=== PATIENT | male | born 1940 | race Caucasian/White ===

== ENCOUNTER 2017-02-21 09:24 | Emergency (ER) | payer OTHER ==
--- NOTE | 2017-02-21 11:20 | DIAGNOSTIC IMAGING REPORT ---
PROCEDURE: CT HEAD WITHOUT CONTRAST INDICATION: TRAUMA/INJURY TECHNIQUE: Axial CT images were acquired through the head. Coronal and sagittal reformations were created. COMPARISON: None. FINDINGS: Mild atrophy and white matter chronic ischemic changes. No intracranial hemorrhage or extraaxial fluid collections. Ventricles are normal in size, shape and position. There is no mass, mass effect or midline shift. The calvarium is intact. The paranasal sinuses and mastoid air cells are normally aerated. The extracranial soft tissues and orbits are normal. IMPRESSION: 1. No CT evidence of acute intracranial process. 2. Age related involutional and white matter changes. 3. Findings discussed with Vernon at 11:[address] scans at this facility use dose modulation, iterative reconstruction, and/or weight-based dosing when appropriate to reduce radiation dose to as low as reasonably achievable.
--- NOTE | 2017-02-21 11:21 | ED ORDER SUMMARY ---
..... Patient: ELIO PATTERSON OrderSheet [facility] VisitID: [id number] [address] [place] [address] 76y, M Registration Date/Time: 02/21/2017 ORDER SHEET Weight: 108.8 kg (stated) Allergies: No Known Drug Allergy GENERAL ORDERS: CT Head wo Cont Urgent (09:43 02/21/2017 Joseph PARADA) (Ack 9:46 LNations ER Tech1) (11:07 LWmarino R.N.) MEDICATION ORDERS: Tdap IM 0.5 mL (NOW, per protocol) (10:26 02/21/2017 Joseph PARADA) (11:07 Moses Santos.N.) IV FLUIDS: ORDER SHEET NOTES: [Electronically signed by Taylor De La Fuente R.N. (13:04 02/21/2017)] [Electronically signed by Alfredo Junior DO (23:02 02/21/2017)] [Electronically locked/signed by Taylor De La Fuente R.N. (13:04 02/21/2017)]
--- NOTE | 2017-02-21 11:21 | ED CLINICAL REPORT ---
Clinical Report - Physicians/Mid Levels [facility] [address] [place] [address] 02/21/2017 9:27 Patient: ELIO PATTERSON Time Seen: 09:36. Arrived- By private vehicle. Historian- patient and spouse. HISTORY OF PRESENT ILLNESS Chief Complaint: INJURY TO HEAD. Location of injuries- face. The injury occurred about 1 hour ago. Fell; tripped (was carrying a heavy bag, tripped on a bunched up rug). Occurred at work. The patient complains of mild pain. The patient sustained a blow to the head. No neck pain, loss of consciousness or seizure. REVIEW OF SYSTEMS No numbness, hearing loss, nausea, chest pain or depression. No weakness, loss of vision, vomiting, difficulty breathing or fever. He has had bladder dysfunction (prior bladder cancer). He sustained skin laceration to the face. Has not recently been ill. All systems otherwise negative, except as recorded above. PAST HISTORY PCP: Dr Byrnes Benign prostatitic hypertrophy. Hypertension. Bladder Cancer. Large right lower abdominal hernia. SURGERY HX: Cystoscopy. Bowel surgery (?colon resection per old record) Additional Problems: Fibula Fracture. Tibia Fracture. SOCIAL HISTORY Former smoker. Occasional alcohol use. History of drug use: marijuana. ADDITIONAL NOTES The nursing notes have been reviewed. PHYSICAL EXAM Vital Signs: 02/21/2017 09:30 BP: 128/74. HR: 88. RR: 16. O2 saturation: 97%. Temp: 98 F. Pain level now: 7/10. Appearance: Alert. No acute distress. Head: No Rasheed's sign or raccoon eyes. Forehead: abrasion, mild tenderness, moderate swelling and small ecchymosis of the upper right side of the forehead. No erythema, puncture wound, foreign body or deformity. Eyes: Pupils equal, round and reactive to light. EOM intact. ENT: No dental injury. No hemotympanum. Pharynx normal. Neck: Painless ROM. Neck non-tender. CVS: Heart sounds normal. Pulses normal. Respiratory: Breath sounds normal. Chest nontender. Abdomen: Soft and nontender. Back: No tenderness. ROM normal. Skin: (forehead abrasion and laceration). Extremities: Normal inspection. Pelvis stable. Extremities atraumatic. Neuro: [place] Coma Scale: 15- eyes open spontaneously (4); best verbal response- oriented x 3 (5); best motor response- obeys commands (6). Oriented X 3. Mood/affect normal. Speech normal. No motor deficit. Normal gait. No sensory deficit. Reflexes normal. LABS, X-RAYS, AND EKG CT Head: No bony abnormalities, no hemorrhage, no intracranial mass, no midline shift and no hydrocephalus. Head CT performed without contrast. The study was independently viewed by me, interpreted by the radiologist and discussed with the radiologist. PROGRESS AND PROCEDURES Laceration Repair: Location: forehead. Length: 2.0cm. Complexity: simple (closed with tissue adhesive). Exam note: superficial. Distal neuro/vascular/tendon status normal. Wound explored and cleansed. Closure of skin. Skin adhesive used. Post-procedure: he is stable and there are no complications. Bleeding is controlled and neuro-vascular status is intact distal to the wound. Dressing applied. Tetanus immunization up-to-date. Course of Care: Tdap 0.5cc IM. No sign of intracranial bleed or skull fracture. Clear trip and fall mechanism. Wound should do well with skin adhesive. 11:21 02/21/17. Just spoke with Dr Reilly about neg head CT 02/21/2017 11:45 BP: 129/68. HR: 82. RR: 16. O2 saturation: 100%. Patient/family counseled. Old ED records reviewed. Disposition: Discharged. Condition: stable and improved. CLINICAL IMPRESSION Single superficial laceration to the forehead.No foreign body present. Contusion to the forehead. Fall on same level by tripping. Clinical picture does not suggest neck pain, subdural hematoma, epidural hematoma, skull fracture or facial fracture. Clinical picture does not suggest traumatic intracranial hemorrhage or subarachnoid hemorrhage. INSTRUCTIONS Apply ice. Protect wound and keep wound area clean. You may wash wounds briefly, then dry. Do not apply bacitracin. Do not apply neosporin. Do not work for two days. (Please hold your coumadin for 24 hours then resume as directed). Warnings: TETANUS: You were given a tetanus shot during your visit. Make a note for future reference. GENERAL WARNINGS: Return or contact your physician immediately if your condition worsens or changes unexpectedly, if not improving as expected, or if other problems arise. Your Current Medications: CONTINUE TAKING THE FOLLOWING MEDICATIONS: Epitol Oral : Tablet 200 mg. Flomax Oral : 0.4 mg. Lisinopril Oral : 10 mg daily. Omeprazole Oral : 40 mg. Vitamins/Minerals Oral. CONTINUE TAKING THE FOLLOWING MEDICATIONS UNTIL YOU CHECK WITH YOUR PHYSICIAN: Warfarin Sodium Oral : 9 mg daily. Follow-up: Follow up with your doctor in about three days. (Electronically signed by Alfredo Junior DO 02/21/2017 23:02)
--- NOTE | 2017-02-21 11:21 | ED ORDER SUMMARY ---
..... Patient: ELIO PATTERSON OrderSheet [facility] VisitID: [id number] [address] [place] [address] 76y, M Registration Date/Time: 02/21/2017 ORDER SHEET Weight: 108.8 kg (stated) Allergies: No Known Drug Allergy GENERAL ORDERS: CT Head wo Cont Urgent (09:43 02/21/2017 Joseph PARADA) (Ack 9:46 LNations ER Tech1) (11:07 LWmarino R.N.) MEDICATION ORDERS: Tdap IM 0.5 mL (NOW, per protocol) (10:26 02/21/2017 Joseph PARADA) (11:07 Moses Santos.N.) IV FLUIDS: ORDER SHEET NOTES: [Electronically signed by Taylor De La Fuente R.N. (13:04 02/21/2017)] [Electronically signed by Alfredo Junior DO (23:02 02/21/2017)] [Electronically locked/signed by Taylor De La Fuente R.N. (13:04 02/21/2017)]
--- NOTE | 2017-02-21 11:21 | ED NURSING NOTES ---
Clinical Report - Nurses [place] [address] [place] [address] 02/21/2017 9:27 Patient: ELIO PATTERSON TRIAGE Triage time 09:30. Acuity: LEVEL 3. Chief Complaint: FALL while walking, onto a hard surface; tripped (was carrying a heavy bag, tripped on a bunched up rug). Alert. No acute distress. CARLIN COMA SCORE: Carlin Coma Scale: 15- eyes open spontaneously (4); best verbal response- oriented x 4 (5); best motor response- obeys commands (6). --09:39 Taylor De La Fuente R.N. 09:30 02/21/17. BP: 128/74. HR: 88. RR: 16. O2 saturation: 97% on room air. Temp: 98 F (oral). Pain level now: 05/01. --09:39 Taylor De La Fuente R.N. Weight: 108.8 kg stated. Height/Length: 71 inches Per Patient. BMI: 33.5. --09:38 Taylor De La Fuente R.N. Medications Warfarin Sodium Oral 9 mg, daily. --09:32 Taylor De La Fuente R.N. Lisinopril Oral 10 mg, daily. --09:32 Taylor De La Fuente R.N. Flomax Oral 0.4 mg. --09:32 Taylor De La Fuente R.N. Vitamins/Minerals Oral. --09:33 Taylor De La Fuente R.N. Omeprazole Oral 40 mg. --10:02 Taylor De La Fuente R.N. Epitol Oral (Tablet 200 mg). --10:03 Taylor De La Fuente R.N. The following entry was struck by Taylor De La Fuente R.N., 10:01 (02/21/17) Reason - other. <<STRICKEN ENTRY-- Somethng for "gut" pain. --09:33 Taylor De La Fuente R.N. --END STRIKE>> The following entry was struck and corrected by Taylor De La Fuente R.N., 09:56 (02/21/17) Reason for correction - other(correction). <<STRICKEN ENTRY-- Flomax Oral. --09:32 Taylor De La Fuente R.N. --END STRIKE>>. Medication/allergy information source: the patient. --09:39 Taylor De La Fuente R.N. Allergies No Known Drug Allergy. --09:33 Taylor De La Fuente R.N. History Arrived by private vehicle. Historian: patient. Accompanied by family. Primary physician (Fitz). Location of injuries: head. This occurred just prior to arrival. Occurred at work. No loss of consciousness. PAST MEDICAL HX: Tetanus status: unknown. SOCIAL HX: Former smoker. Occasional alcohol use. History of drug use: marijuana. FALL RISK ASSESSMENT: Fall risk assessment completed. No fall risk identified. FUNCTIONAL ASSESSMENT: Functional assessment: no impairments noted. LEARNING NEEDS ASSESSMENT: The learning needs assessment revealed no barriers. --09:39 Taylor De La Fuente R.N. PROBLEMS: Cancer. Contusion. Abrasion(s). Abnormal Test. Fall. Fibula Fracture. Tibia Fracture. --09:35 Taylor De La Fuente R.N. ADDITIONAL SURGERIES: Ankle surgery. Colon surgery. --09:35 Taylor De La Fuente R.N. Assessment GENERAL / NEURO / PSYCH: Alert. Oriented X 4. Appears in no acute distress. Patient appears calm and cooperative. RESPIRATORY: Respirations not labored. SKIN: Skin is warm and dry. --09:39 Taylor De La Fuente R.N. Interventions ID band on patient. To treatment room. --09:39 Taylor De La Fuente R.N. PHYSICAL ASSESSMENT 09:50 02/21/17. To room via wheelchair. GENERAL / NEURO / PSYCH: Alert. Oriented X 4. Appears in no acute distress. HEENT: Head: tenderness and swelling present in the right forehead (skin tear). RESPIRATORY: Respirations not labored. SKIN: Skin is warm and dry. --09:50 Taylor De La Fuente R.N. NURSING PROGRESS NOTES 09:51 02/21/17. Cold pack applied. Call light placed in reach. Side rails up x 1. Bed placed in lowest position. Brakes of bed on. --09:51 Taylor De La Fuente R.N. Patient transported to CT by stretcher. Patient returned from CT by stretcher. --10:19 Taylor De La Fuente R.N. 10:17 02/21/17. BP: 133/82. HR: 84. RR: 18. O2 saturation: 97% on room air. --10:19 Taylor De La Fuente R.N. 10:19 ct mri technologist and pt reports, when he sat up after the CT was done, pt became dizzy, pt also reports that he wouldn't have wanted to stand at that time because he would have fallen. --10:21 Taylor De La Fuente R.N. 11:07 02/21/2017 TDAP IM 0.5 mL given. (Lot#: [id number], expiration date: 07/30/2018, University Librarian: sanofi pasteur). Given in the right deltoid. Allergies verified and confirmed 5 rights. Vaccine information statement provided to the patient and patient's family. --11:07 Ede Adame R.N. 11:45. The patient is calm. Overall patient status is improved- he states feels better (forehead wound dressed with 2x2 and wrapped with sumanth). GENERAL / NEURO / PSYCH: Alert. Oriented X 4. RESPIRATORY: No respiratory distress. --12:56 Tayolr De La Fuente R.N. DISPOSITION / DISCHARGE Departure time: 1145. Condition at departure: improved and stable. Fall risk assessment completed. Risk factors identified include patient history of fall. Fall interventions initiated. Spikemaking Supervisor at bedside. No learning barriers present. Discharge instructions provided and reviewed with the patient. Reviewed medication(s) dosing information (hold coumadin for 24 hours, then resume taking as directed by your physician). Work note given. Patient verbalized understanding. Written instructions provided in Kinyarwanda. The patient was discharged home and accompanied by coke production heater. He left the Emergency Department ambulatory and via private vehicle. FALL RISK ASSESSMENT: Fall risk assessment completed. No fall risk identified. --12:55 Taylor De La Fuente R.N. 11:45 02/21/17. BP: 129/68. HR: 82. RR: 16. O2 saturation: 100% on room air. Pain level now: cannot qualify. --12:55 Taylor De La Fuente R.N. Locked/Released at 02/21/2017 13:04 by Taylor De La Fuente R.N.
--- NOTE | 2017-02-21 11:21 | ED NURSING NOTES ---
Clinical Report - Nurses [place] [address] [place] [address] 02/21/2017 9:27 Patient: ELIO PATTERSON TRIAGE Triage time 09:30. Acuity: LEVEL 3. Chief Complaint: FALL while walking, onto a hard surface; tripped (was carrying a heavy bag, tripped on a bunched up rug). Alert. No acute distress. CARLIN COMA SCORE: Carlin Coma Scale: 15- eyes open spontaneously (4); best verbal response- oriented x 4 (5); best motor response- obeys commands (6). --09:39 Taylor De La Fuente R.N. 09:30 02/21/17. BP: 128/74. HR: 88. RR: 16. O2 saturation: 97% on room air. Temp: 98 F (oral). Pain level now: 05/01. --09:39 Taylor De La Fuente R.N. Weight: 108.8 kg stated. Height/Length: 71 inches Per Patient. BMI: 33.5. --09:38 Taylor De La Fuente R.N. Medications Warfarin Sodium Oral 9 mg, daily. --09:32 Taylor De La Fuente R.N. Lisinopril Oral 10 mg, daily. --09:32 Taylor De La Fuente R.N. Flomax Oral 0.4 mg. --09:32 Taylor De La Fuente R.N. Vitamins/Minerals Oral. --09:33 Taylor De La Fuente R.N. Omeprazole Oral 40 mg. --10:02 Taylor De La Fuente R.N. Epitol Oral (Tablet 200 mg). --10:03 Taylor De La Fuente R.N. The following entry was struck by Taylor De La Fuente R.N., 10:01 (02/21/17) Reason - other. <<STRICKEN ENTRY-- Somethng for "gut" pain. --09:33 Taylor De La Fuente R.N. --END STRIKE>> The following entry was struck and corrected by Taylor De La Fuente R.N., 09:56 (02/21/17) Reason for correction - other(correction). <<STRICKEN ENTRY-- Flomax Oral. --09:32 Taylor De La Fuente R.N. --END STRIKE>>. Medication/allergy information source: the patient. --09:39 Taylor De La Fuente R.N. Allergies No Known Drug Allergy. --09:33 Taylor De La Fuente R.N. History Arrived by private vehicle. Historian: patient. Accompanied by family. Primary physician (Fitz). Location of injuries: head. This occurred just prior to arrival. Occurred at work. No loss of consciousness. PAST MEDICAL HX: Tetanus status: unknown. SOCIAL HX: Former smoker. Occasional alcohol use. History of drug use: marijuana. FALL RISK ASSESSMENT: Fall risk assessment completed. No fall risk identified. FUNCTIONAL ASSESSMENT: Functional assessment: no impairments noted. LEARNING NEEDS ASSESSMENT: The learning needs assessment revealed no barriers. --09:39 Taylor De La Fuente R.N. PROBLEMS: Cancer. Contusion. Abrasion(s). Abnormal Test. Fall. Fibula Fracture. Tibia Fracture. --09:35 Taylor De La Fuente R.N. ADDITIONAL SURGERIES: Ankle surgery. Colon surgery. --09:35 Taylor De La Fuente R.N. Assessment GENERAL / NEURO / PSYCH: Alert. Oriented X 4. Appears in no acute distress. Patient appears calm and cooperative. RESPIRATORY: Respirations not labored. SKIN: Skin is warm and dry. --09:39 Taylor De La Fuente R.N. Interventions ID band on patient. To treatment room. --09:39 Taylor De La Fuente R.N. PHYSICAL ASSESSMENT 09:50 02/21/17. To room via wheelchair. GENERAL / NEURO / PSYCH: Alert. Oriented X 4. Appears in no acute distress. HEENT: Head: tenderness and swelling present in the right forehead (skin tear). RESPIRATORY: Respirations not labored. SKIN: Skin is warm and dry. --09:50 Taylor De La Fuente R.N. NURSING PROGRESS NOTES 09:51 02/21/17. Cold pack applied. Call light placed in reach. Side rails up x 1. Bed placed in lowest position. Brakes of bed on. --09:51 Taylor De La Fuente R.N. Patient transported to CT by stretcher. Patient returned from CT by stretcher. --10:19 Taylor De La Fuente R.N. 10:17 02/21/17. BP: 133/82. HR: 84. RR: 18. O2 saturation: 97% on room air. --10:19 Taylor De La Fuente R.N. 10:19 breeder service technician and pt reports, when he sat up after the CT was done, pt became dizzy, pt also reports that he wouldn't have wanted to stand at that time because he would have fallen. --10:21 Taylor De La Fuente R.N. 11:07 02/21/2017 TDAP IM 0.5 mL given. (Lot#: [id number], expiration date: 07/30/2018, Bottom Crane Operator: sanofi pasteur). Given in the right deltoid. Allergies verified and confirmed 5 rights. Vaccine information statement provided to the patient and patient's family. --11:07 Ede Adame R.N. 11:45. The patient is calm. Overall patient status is improved- he states feels better (forehead wound dressed with 2x2 and wrapped with sumanth). GENERAL / NEURO / PSYCH: Alert. Oriented X 4. RESPIRATORY: No respiratory distress. --12:56 Taylor De La Fuente R.N. DISPOSITION / DISCHARGE Departure time: 1145. Condition at departure: improved and stable. Fall risk assessment completed. Risk factors identified include patient history of fall. Fall interventions initiated. Nurse Recruiter at bedside. No learning barriers present. Discharge instructions provided and reviewed with the patient. Reviewed medication(s) dosing information (hold coumadin for 24 hours, then resume taking as directed by your physician). Work note given. Patient verbalized understanding. Written instructions provided in Serbian. The patient was discharged home and accompanied by laboratory development technician. He left the Emergency Department ambulatory and via private vehicle. FALL RISK ASSESSMENT: Fall risk assessment completed. No fall risk identified. --12:55 Taylor De La Fuente R.N. 11:45 02/21/17. BP: 129/68. HR: 82. RR: 16. O2 saturation: 100% on room air. Pain level now: cannot qualify. --12:55 Taylor De La Fuente R.N. Locked/Released at 02/21/2017 13:04 by Taylor De La Fuente R.N.
--- NOTE | 2017-02-21 23:02 | ED MAR SUMMARY ---
..... Medication Administration Record [facility] [address] [place] [address] Patient: ELIO PATTERSON Visit ID: [id number] 76y, M Weight: 108.8 kg Height/Length: 71 in BMI: 33.5 ALLERGIES: No Known Drug Allergy Given 11:07 02/21/2017 Ede Adame R.N. Medication Administered: TDAP [IM], Dose: 0.5 mL IM. Medication Ordered: Tdap IM 0.5 mL (NOW, per protocol).
--- NOTE | 2017-02-21 23:02 | ED MED RECONCILIATION SUMMARY ---
Patient: ELIO PATTERSON Medication Reconciliation Report [facility] VisitID: [id number] [address] [place] [address] 76y, M Registration Date/Time: 02/21/2017 Weight: 108.8 kg Height/Length: 71 in. BMI: 33.5 ALLERGIES: No Known Drug Allergy The patient's Home Medications are listed below: CONTINUE TAKING THE FOLLOWING MEDICATIONS: Epitol Oral (200 mg) Flomax Oral 0.4 mg Lisinopril Oral 10 mg, daily Omeprazole Oral 40 mg Vitamins/Minerals Oral CONTINUE TAKING THE FOLLOWING MEDICATIONS UNTIL YOU CHECK WITH YOUR PHYSICIAN: Warfarin Sodium Oral 9 mg, daily The source(s) of the original Home Medication information: patient The following Medications were given to the patient in the Emergency Department: TDAP [IM] IM 0.5 mL, administered: 02/21/2017 11:07:00 AM The following Medications were prescribed to the patient: None.
--- NOTE | 2017-02-21 23:02 | ED MAR SUMMARY ---
..... Medication Administration Record [facility] [address] [place] [address] Patient: ELIO PATTERSON Visit ID: [id number] 76y, M Weight: 108.8 kg Height/Length: 71 in BMI: 33.5 ALLERGIES: No Known Drug Allergy Given 11:07 02/21/2017 Ede Adame R.N. Medication Administered: TDAP [IM], Dose: 0.5 mL IM. Medication Ordered: Tdap IM 0.5 mL (NOW, per protocol).
--- NOTE | 2017-02-21 23:02 | ED DISCHARGE INSTRUCTIONS ---
Patient: ELIO PATTERSON General Instructions Merged With [facility] VisitID: [id number] [place] [address] 76y, M Registration Date/Time: 02/21/2017 Single superficial laceration to the forehead.No foreign body present. Contusion to the forehead. Fall on same level by tripping. INSTRUCTIONS Apply ice. Protect wound and keep wound area clean. You may wash wounds briefly, then dry. Do not apply bacitracin. Do not apply neosporin. Do not work for two days. (Please hold your coumadin for 24 hours then resume as directed). Warnings: TETANUS: You were given a tetanus shot during your visit. Make a note for future reference. GENERAL WARNINGS: Return or contact your physician immediately if your condition worsens or changes unexpectedly, if not improving as expected, or if other problems arise. Your Current Medications: CONTINUE TAKING THE FOLLOWING MEDICATIONS: Epitol Oral : Tablet 200 mg. Flomax Oral : 0.4 mg. Lisinopril Oral : 10 mg daily. Omeprazole Oral : 40 mg. Vitamins/Minerals Oral. CONTINUE TAKING THE FOLLOWING MEDICATIONS UNTIL YOU CHECK WITH YOUR PHYSICIAN: Warfarin Sodium Oral : 9 mg daily. Follow-up: Follow up with your doctor in about three days. ADDITIONAL INFORMATION Mechanical Fall You have had a fall today. It appears that the cause is mechanical. That means that you slipped, tripped or lost your balance. If your fall had been due to fainting or a seizure, further tests would be required. Home Care: Rest today and resume your normal activities when you are feeling back to normal. If you were injured during the fall, follow the advice from your doctor regarding care of your injury. You may use acetaminophen (Tylenol) or ibuprofen (Motrin, Advil) to control pain, unless another pain medicine was prescribed. [NOTE: If you have chronic liver or kidney disease or ever had a stomach ulcer or GI bleeding, talk with your doctor before using these medicines.] Fall Prevention: Was there anything that caused your fall that can be fixed, removed, or replaced? Make your home safe by keeping walkways clear of objects you may trip over. Use non-slip pads under rugs. Do not walk in poorly lit areas. Do not stand on chairs or wobbly ladders. Use caution when reaching overhead or looking upward. This position can cause a loss of balance. Be sure your shoes fit properly, have non-slip bottoms and are in good condition. Be cautious when going up and down curbs, and walking on uneven sidewalks. If your balance is poor, consider using a cane or walker. Stay as active as you can. Balance, flexibility, strength, and endurance all come from exercise. They all play a role in preventing falls. Follow Up with your doctor or as advised by our staff. Get Prompt Medical Attention if any of the following occur: Repeated mechanical falls, or unexplained falls Dizziness, fainting or seizure Severe headache Chest pain or shortness of breath Palpitations (very rapid or very slow or irregular heartbeat) Blood in vomit, stools (black or red color) Weakness of an arm or leg or one side of the face Difficulty with speech or vision Laceration, Face(Skin Glue) A laceration is a cut through the skin. A laceration on your face hasbeen closed with a type of skin glue. Home Care Medications: Acetaminophen (Tylenol) or ibuprofen (Motrin, Advil) may be taken for pain, unless another pain medicine was prescribed. NOTE: If you have chronic liver or kidney disease or ever had a stomach ulcer or GI bleeding, talk with your doctor before using these medications. General Care: Keep the wound clean and dry. You may shower or bathe as usual, but do not use soaps, lotions, or ointments on the wound area. Do not scrub the wound. After bathing, pat the wound dry with a soft towel. Do not scratch, rub, or pick at the film. Do not place tape directly over the film. Do not apply liquids (such as peroxide), ointments, or creams to the wound while the film is in place. Most facialskin wounds heal without problems. However, an infection sometimes occurs despite proper treatment. Therefore, watch for the signs of infection listed below. Follow Up as directed by the doctor or our staff. The skin glue film will fall off naturally in 5 to 10 days. Get Prompt Medical Attention if any of the following occur: Signs of infection: Fever of 100.4F (38C) or higher, or as directed by your healthcare provider Increasing pain in the wound Increasing redness or swelling Pus coming from the wound Wound bleeds more than a small amount or bleeding doesnt stop Wound edges come apart Facial Contusion (With Wake-Up) A facial contusion is a bruise with swelling and sometimes bleeding under the skin. The swelling should start to go down within two days. Although there may be no signs of a serious injury at this time, symptoms may appear later which could be a sign of a more serious problem. Therefore, watch for the warning signs below. Home care The following guidelines will help you care for your injury at home: During the next 24 hours you must stay with someone who can watch you for the warning signs below. This person shouldwake you every two hoursto be sure that you can be awakened easily and that you respond normally. If you have swelling of the face, apply an ice pack (ice cubes in a plastic bag, wrapped in a towel) for 20 minutes every 12 hours until the swelling starts to go down. If you have scrapes or cuts on your face, clean them daily with soap and water. Apply an antibiotic ointment or cream for the first few days to prevent infection. You may use acetaminophen or ibuprofen to control pain, unless another pain medicine was prescribed.If you have chronic liver or kidney disease or ever had a stomach ulcer or GI bleeding, talk with your doctor before using these medicines. Do not use ibuprofen in children under six months of age. For the next 24 hours: Do not take alcohol, sedatives or medicines that make you sleepy. Do not drive or operate machinery. Avoid strenuous activities. No lifting or straining. If you have had any symptoms of aconcussiontoday (nausea, vomiting, dizziness, confusion, headache, memory loss or if you were knocked out), do not return to sports or any activity that could result in another head injury until all symptoms are gone and you have been cleared by your doctor. A second head injury before fully recovering from the first one can lead to serious brain injury. Follow-up care Follow up with your doctor in one week or as directed. Note:Any X-rays or CT scans taken will be reviewed by a radiologist. You will be notified of any new findings that may affect your care. When to seek medical care Get prompt medical attention if any of the following occur: Repeated vomiting Severe or worsening headache or dizziness Unusual drowsiness, or unable to awaken as usual Confusion or change in behavior or speech, memory loss, blurred vision Convulsion (seizure) Increasing scalp or face swelling Redness, warmth or pus from the swollen area Fluid drainage or bleeding from the nose or ears Fever of 100.4F (38C) or higher, or as directed by your health care provider Increasing jaw pain with chewing or increasing pain in the sinuses Nose looks crooked or cannot breathe through your nose after swelling goes down Laceration: Will There Be A Scar? A laceration is a cut through one or more layers of the skin. The goal of emergency treatment is to clean the wound and close it to prevent infection, control bleeding and speed healing. Cuts heal because the body is able to repair the skin by "sealing" the edges together with collagen, a kind of "skin cement." How deep your cut is, its location on your body, your age and the way your skin heals all determine how visible the final scar will be. Some persons tend to heal with more scar tissue than others. This cut will probably heal similar to other cuts you have had in the past. What You Can Do: There are a few simple things that you can do to limit the amount of scar that forms: 1) PREVENT INFECTION: An infected wound makes a bigger scar. Keep the wound clean and dry. Change the dressing and apply any ointment/cream as directed. 2) MASSAGE THE WOUND:After the stitches have been removed: Use a moisturizing cream or lotion containing Aloe or Vitamin E Oil and gently massage the skin around the wound with your fingertips (wash your hands first!). Do this twice a day for the first two weeks, then once a day for a month. This will increase the flow of oxygen and blood to the wound and prevent excess scar tissue from building up. 3) AVOID SUN EXPOSURE: During the first six months, avoid sun exposure since the scar may mena a much darker color than the skin around it. When in the sun, use SPF #50 (or greater) sun block on the scar, or cover the area with a hat or clothing. What To Expect: -- The cut will be sealed within 2 days and will be strong within 5-10 days. However, it will take at least SIX MONTHS for it to be fully healed. -- During the FIRST THREE MONTHS, you may notice the scar line getting more red or purple in color. The scar may become raised. The skin around the wound may feel thick and lumpy. -- During the FOURTH TO SIXTH MONTHS, this process begins to reverse. The red and purple color will fade, the scar line flattens, and the skin around it feels more normal. -- In most cases, the way the scar line looks after six months is the way it will remain, although there may be some continued improvement up to one year after the injury. Is There Anything Else That Can Be Done? If you do not like the way the scar looks after six months, a plastic surgeon may be able to perform a "scar revision." If you have any questions or problems as your wound heals, contact your doctor or this facility. We will be glad to assist you. Diphtheria Toxoid Adsorbed, Pertussis Vaccine, Acellular (Adsorbed), Tetanus Toxoid, Adsorbed Suspension for injection What is this medicine? DIPHTHERIA and TETANUS TOXOIDS; PERTUSSIS VACCINE (dif THEER ee uh and TET n us TOK soids; per RIZWAN coyne SEEN) is used to prevent diphtheria, tetanus, and pertussis infections. How should I use this medicine? This vaccine is for injection into a muscle. It is given by a health out of school hours care worker. A copy of Vaccine Information Statements will be given before each vaccination. Read this sheet carefully each time. The sheet may change frequently. Talk to your career development consultant regarding the use of this vaccine in children. While the DTP vaccine may be given to children ages 6 weeks to 7 years and the Tdap vaccine may be given to children at least 10 years old, precautions do apply. What side effects may I notice from receiving this medicine? Side effects that you should report to your doctor or health out of school hours care worker as soon as possible: allergic reactions like skin rash, itching or hives, swelling of the face, lips, or tongue breathing problems fever of 103 degrees F or more flu-like symptoms inconsolable crying infection pain, tingling, numbness in the hands or feet seizures swelling of arm or leg that was injected unusually weak or tired Side effects that usually do not require immediate medical attention (report these side effects to your doctor or health out of school hours care worker if they continue or are bothersome): fussy, irritable loss of appetite fever of 102 degrees F or less pain, tenderness, redness, swelling, or a 'knot' at site where injected vomiting What may interact with this medicine? immune globulin medicines that suppress your immune function like adalimumab, anakinra, infliximab medicines to treat cancer medicines that treat or prevent blood clots like warfarin, enoxaparin, and dalteparin steroid medicines like prednisone or cortisone What if I miss a dose? It is important not to miss your dose. Call your doctor or health out of school hours care worker if you are unable to keep an appointment. Where should I keep my medicine? This drug is given in a hospital or clinic and will not be stored at home. What should I tell my health care provider before I take this medicine? They need to know if you have any of these conditions: blood disorders like hemophilia fever or infection immune system problems neurologic disease seizures an unusual or allergic reaction to vaccines, thimerosal, latex, other medicines, foods, dyes, or preservatives or trying to get breast-feeding What should I watch for while using this medicine? See your health care provider for all shots of this vaccine as directed. To have protection from infection, you must have 3 shots of this vaccine plus boosters as needed. Tell your doctor right away if you have any serious or unusual side effects after getting this vaccine. You have been given the following additional information: Fall, Mechanical Laceration, Face (Skin Glue) Facial Contusion, With Wakeup Laceration, How To Minimize Scar Diphtheria Toxoid Adsorbed, Pertussis Vaccine, Acellular (Adsorbed), Tetanus Toxoid, Adsorbed Suspension for injection Do not work for two days. (Electronically signed by Alfredo Junior DO 02/21/2017 23:02)
--- NOTE | 2017-02-21 23:02 | ED MED RECONCILIATION SUMMARY ---
Patient: ELIO PATTERSON Medication Reconciliation Report [facility] VisitID: [id number] [address] [place] [address] 76y, M Registration Date/Time: 02/21/2017 Weight: 108.8 kg Height/Length: 71 in. BMI: 33.5 ALLERGIES: No Known Drug Allergy The patient's Home Medications are listed below: CONTINUE TAKING THE FOLLOWING MEDICATIONS: Epitol Oral (200 mg) Flomax Oral 0.4 mg Lisinopril Oral 10 mg, daily Omeprazole Oral 40 mg Vitamins/Minerals Oral CONTINUE TAKING THE FOLLOWING MEDICATIONS UNTIL YOU CHECK WITH YOUR PHYSICIAN: Warfarin Sodium Oral 9 mg, daily The source(s) of the original Home Medication information: patient The following Medications were given to the patient in the Emergency Department: TDAP [IM] IM 0.5 mL, administered: 02/21/2017 11:07:00 AM The following Medications were prescribed to the patient: None.
== END 2017-02-21 11:45 | disposition home or self-care (01) ==
LOC: ED SRH 09:24
DX: S01.81XA Laceration without foreign body of other part of head, initial encounter (principal); S00.83XA Contusion of other part of head, initial encounter; W01.0XXA Fall on same level from slipping, tripping and stumbling without subsequent striking against object, initial encounter; Y92.89 Other specified places as the place of occurrence of the external cause; Y99.0 Civilian activity done for income or pay; Z23 Encounter for immunization; I10 Essential (primary) hypertension; Z87.891 Personal history of nicotine dependence; Z79.01 Long term (current) use of anticoagulants; Z79.899 Other long term (current) drug therapy